=== PATIENT | female | born 1940 | race Caucasian/White ===

== ENCOUNTER 2020-12-03 18:17 | Inpatient (IN) | payer MEDICARE ==
[2020-12-03] MEDS ORDERED: HYDROcodone/Acetaminophen 7.5/325 mg Tablet PO PRN (19:28)
[2020-12-03] MEDS ORDERED: Ondansetron PF 4 MG/2 ML Vial IVP PRN (19:28)
[2020-12-03] MEDS ORDERED: Ondansetron ODT 4 MG TAB PO PRN (19:28)
[2020-12-03 20:54] LABS: Hemoglobin 10.8 g/dL (12.0-15.5); Mean Corpuscular HGB CONC 33.6 g/dL (32.0-36.0); Mean Corpuscular Hemoglobin 32.1 pg (27.0-33.0); Mean Corpuscular Volume 95.5 fl (81.6-98.3); Mean Platelet Volume 9.4 fl (7.4-10.4); Platelet Count 182 10x3/uL (150-450); RBC Distribution Width 15.7 % (11.5-14.5); Red Blood Cell (RBC) Count 3.36 10x6/uL (3.90-5.03); White Blood Cell (WBC) Count 16.3 10x3/uL (3.5-10.5)
[2020-12-03 21:02] LABS: Anion Gap 15 mmol/L (10-20); BUN (Urea Nitrogen) 31 mg/dL (9.8-20.1); Calc. Creatinine Clearance 32 mL/min (70-130); Calcium 7.5 mg/dL (7.8-10.44); Carbon Dioxide 19 mmol/L (23-31); Chloride 106 mmol/L (98-107); Glucose 70 mg/dL (83-110); Sodium 136 mmol/L (136-145)
[2020-12-03 21:17] LABS: MDiff Complete? YES
[2020-12-03 21:21] LABS: Band 37 % (5-11); Lymphocytes 4 % (21-51); Metamyelocyte 9 % (0-0); Neutrophil 50 % (42-75)
[2020-12-03 21:22] LABS: Dohle Bodies SLIGHT; Vacuoles SLIGHT
[2020-12-03 21:23] LABS: Platelet Morphology Comment Appears Adequate
[2020-12-03 21:24] LABS: RBC Morphology Normal
[2020-12-03 22:02] LABS: Vancomycin, Trough 22.3 ug/mL
[2020-12-03] MEDS: Cefepime 2 GM in Sodium Chloride 0.9% 100 ML IVPB SCH (22:10)
[2020-12-03] MEDS: Sodium Chloride 0.9% 1,000 ML IV SCH (22:10)
[2020-12-03] MEDS: Clindamycin/D5W 900 MG in Premix Bag 1 BAG IVPB SCH (22:11)
[2020-12-03] MEDS: Heparin 5,000 UNITS/ML VIAL SC SCH (22:11)
[2020-12-03] MEDS: Simvastatin 10 MG TAB PO SCH (22:12)
[2020-12-03 23:29] LABS: Lactic Acid 2.7 mmol/L (0.5-2.2)
[2020-12-04] MEDS: HYDROcodone/Acetaminophen 5/325 mg Tablet PO PRN (03:47)
[2020-12-04] MEDS: Sodium Chloride 0.9% 1,000 ML IV SCH ×3 (03:50→15:36)
[2020-12-04 05:17] LABS: Hemoglobin 10.7 g/dL (12.0-15.5); Mean Corpuscular HGB CONC 34.3 g/dL (32.0-36.0); Mean Corpuscular Hemoglobin 32.2 pg (27.0-33.0); Mean Platelet Volume 9.6 fl (7.4-10.4); Platelet Count 186 10x3/uL (150-450); RBC Distribution Width 15.8 % (11.5-14.5); Red Blood Cell (RBC) Count 3.32 10x6/uL (3.90-5.03); White Blood Cell (WBC) Count 16.1 10x3/uL (3.5-10.5)
[2020-12-04 05:24] LABS: Anion Gap 15 mmol/L (10-20); BUN (Urea Nitrogen) 32 mg/dL (9.8-20.1); Calc. Creatinine Clearance 31 mL/min (70-130); Calcium 6.9 mg/dL (7.8-10.44); Carbon Dioxide 16 mmol/L (23-31); Chloride 110 mmol/L (98-107); Glucose 67 mg/dL (83-110); Potassium 3.8 mmol/L (3.5-5.1); Sodium 137 mmol/L (136-145)
[2020-12-04] MEDS: Clindamycin/D5W 900 MG in Premix Bag 1 BAG IVPB SCH ×3 (05:47→21:45)
[2020-12-04 06:00] LABS: MDiff Complete? YES
[2020-12-04 06:07] LABS: Band 46 % (5-11); Lymphocytes 2 % (21-51); Metamyelocyte 5 % (0-0); Monocytes 3 % (0-10); Neutrophil 44 % (42-75)
[2020-12-04 06:10] LABS: Platelet Morphology Comment Appears Adequate
[2020-12-04 06:11] LABS: Dohle Bodies SLIGHT; RBC Morphology Normal
[2020-12-04] MEDS: Aspirin 81 mg Enteric Coated Tablet PO SCH (08:32)
[2020-12-04] MEDS: Heparin 5,000 UNITS/ML VIAL SC SCH ×3 (08:32→20:41)
[2020-12-04] MEDS: Cefepime 2 GM in Sodium Chloride 0.9% 100 ML IVPB SCH ×2 (08:32→20:40)
[2020-12-04] MEDS ORDERED: Vancomycin 1 GM in Premix Bag 1 BAG IVPB PRN (09:00)
[2020-12-04 13:37] LABS: Anion Gap 13 mmol/L (10-20); BUN (Urea Nitrogen) 33 mg/dL (9.8-20.1); Calc. Creatinine Clearance 33 mL/min (70-130); Calcium 6.8 mg/dL (7.8-10.44); Carbon Dioxide 17 mmol/L (23-31); Chloride 113 mmol/L (98-107); Glucose 95 mg/dL (83-110); Potassium 3.9 mmol/L (3.5-5.1); Sodium 139 mmol/L (136-145)
[2020-12-04] MEDS: Acetaminophen 500 MG TAB PO PRN ×2 (13:45→21:55)
[2020-12-04 16:00] LABS: Lactic Acid 1.2 mmol/L (0.5-2.2)
[2020-12-04] MEDS ORDERED: Sodium Bicarb 50 MEQ/50 ML VIAL IVP SCH (17:00)
[2020-12-04] MEDS: Simvastatin 10 MG TAB PO SCH (20:40)
[2020-12-04] MEDS ORDERED: Sodium Bicarb 50 MEQ/50 ML VIAL ONE (21:45)
[2020-12-04] MEDS ORDERED: Sodium Bicarb 50 MEQ/50 ML Abboject 8.4% SYRINGE IVP SCH (22:00)
[2020-12-05] MEDS: Sodium Chloride 0.9% 1,000 ML IV SCH ×2 (00:16→06:07)
[2020-12-05 03:55] LABS: Hemoglobin 9.5 g/dL (12.0-15.5); Mean Corpuscular HGB CONC 34.2 g/dL (32.0-36.0); Mean Corpuscular Hemoglobin 31.9 pg (27.0-33.0); Mean Corpuscular Volume 93.3 fl (81.6-98.3); Mean Platelet Volume 9.7 fl (7.4-10.4); Platelet Count 162 10x3/uL (150-450); RBC Distribution Width 16.4 % (11.5-14.5); Red Blood Cell (RBC) Count 2.98 10x6/uL (3.90-5.03); White Blood Cell (WBC) Count 17.4 10x3/uL (3.5-10.5)
[2020-12-05 04:15] LABS: Vancomycin, Random 10.3 ug/mL (See Comment)
[2020-12-05 04:20] LABS: MDiff Complete? YES
[2020-12-05 04:24] LABS: Band 29 % (5-11); Lymphocytes 1 % (21-51); Metamyelocyte 3 % (0-0); Monocytes 1 % (0-10); Neutrophil 66 % (42-75)
[2020-12-05 04:25] LABS: ALT (SGPT) 51 U/L (8-55); AST (SGOT) 59 U/L (5-34); Albumin 2.4 g/dL (3.4-4.8); Alkaline Phosphatase 85 U/L (40-110); Anion Gap 14 mmol/L (10-20); BUN (Urea Nitrogen) 31 mg/dL (9.8-20.1); Calc. Creatinine Clearance 40 mL/min (70-130); Calcium 6.6 mg/dL (7.8-10.44); Carbon Dioxide 19 mmol/L (23-31); Chloride 117 mmol/L (98-107); Globulin 1.6 g/dL (2.4-3.5); Glucose 86 mg/dL (83-110); Magnesium 1.5 mg/dL (1.6-2.6); Platelet Morphology Comment Appears Adequate; Potassium 3.6 mmol/L (3.5-5.1); Sodium 146 mmol/L (136-145); Toxic Granulation SLIGHT; Vacuoles SLIGHT
[2020-12-05 04:26] LABS: RBC Morphology Normal
[2020-12-05] MEDS: Vancomycin HCl 1 GM in Sodium Chloride 0.9% 250 ML 250 ML IVPB SCH (06:07)
[2020-12-05] MEDS: Clindamycin/D5W 900 MG in Premix Bag 1 BAG IVPB SCH ×3 (06:07→21:03)
[2020-12-05] MEDS: Cefepime 2 GM in Sodium Chloride 0.9% 100 ML IVPB SCH (08:25)
[2020-12-05] MEDS: Heparin 5,000 UNITS/ML VIAL SC SCH ×3 (08:26→21:03)
[2020-12-05] MEDS: Aspirin 81 mg Enteric Coated Tablet PO SCH (08:26)
[2020-12-05] MEDS: Acetaminophen 325 MG TAB PO PRN (08:36)
[2020-12-05] MEDS ORDERED: Magnesium Sulfate 3 GM in Sodium Chloride 0.9% 100 ML IVPB SCH (11:30)
[2020-12-05] MEDS ORDERED: Potassium Chloride 20 MEQ TAB PO SCH (11:30)
[2020-12-05] MEDS ORDERED: Magnesium 2 GM/50 ML 2 GM in Premix Bag 1 BAG IVPB SCH (12:00)
[2020-12-05] MEDS: Cyclobenzaprine 10 MG TAB PO PRN (12:09)
[2020-12-05] MEDS: Lactated Ringer's 1,000 ML IV SCH ×2 (13:05→19:50)
[2020-12-05] MEDS: Simvastatin 10 MG TAB PO SCH (21:03)
[2020-12-06 04:21] LABS: #Basophils 0.1 10x3/uL (0.0-0.2); #Monocytes 0.8 10x3/uL (0.0-1.1); #Neutrophils 12.6 10x3/uL (1.5-8.4); %Basophils 0.5 % (0.0-2.0); %Eosinophils 0.1 % (0.0-6.0); %Lymphocytes 3.8 % (18.0-47.0); %Monocytes 5.8 % (0.0-10.0); %Neutrophils 89.2 % (40.0-75.0); Hemoglobin 9.9 g/dL (12.0-15.5); Mean Corpuscular HGB CONC 33.9 g/dL (32.0-36.0); Mean Corpuscular Volume 94.5 fl (81.6-98.3); Mean Platelet Volume 10.2 fl (7.4-10.4); Platelet Count 178 10x3/uL (150-450); RBC Distribution Width 16.7 % (11.5-14.5); Red Blood Cell (RBC) Count 3.09 10x6/uL (3.90-5.03); White Blood Cell (WBC) Count 14.1 10x3/uL (3.5-10.5)
[2020-12-06 04:30] LABS: ALT (SGPT) 44 U/L (8-55); AST (SGOT) 38 U/L (5-34); Albumin 2.4 g/dL (3.4-4.8); Alkaline Phosphatase 113 U/L (40-110); Anion Gap 13 mmol/L (10-20); BUN (Urea Nitrogen) 18 mg/dL (9.8-20.1); Bilirubin, Total 1.8 mg/dL (0.2-1.2); Calc. Creatinine Clearance 63 mL/min (70-130); Carbon Dioxide 19 mmol/L (23-31); Chloride 117 mmol/L (98-107); Glucose 85 mg/dL (83-110); Magnesium 2.3 mg/dL (1.6-2.6); Potassium 3.8 mmol/L (3.5-5.1); Protein, Total 4.4 g/dL (5.8-8.1); Sodium 145 mmol/L (136-145)
[2020-12-06] MEDS: Vancomycin HCl 1 GM in Sodium Chloride 0.9% 250 ML 250 ML IVPB SCH (05:27)
[2020-12-06] MEDS: Clindamycin/D5W 900 MG in Premix Bag 1 BAG IVPB SCH ×3 (05:27→22:30)
[2020-12-06] MEDS: Cyclobenzaprine 10 MG TAB PO PRN (08:02)
[2020-12-06] MEDS: Aspirin 81 mg Enteric Coated Tablet PO SCH (08:21)
[2020-12-06] MEDS: Cefepime 1 GM in Sodium Chloride 0.9% 100 ML IVPB SCH (08:23)
[2020-12-06] MEDS: Heparin 5,000 UNITS/ML VIAL SC SCH ×3 (08:24→20:52)
[2020-12-06] MEDS: HYDROcodone/Acetaminophen 7.5/325 mg Tablet PO PRN ×4 (09:40→22:33)
[2020-12-06] MEDS: Lactated Ringer's 1,000 ML IV SCH ×2 (09:49→12:20)
[2020-12-06] MEDS: Simvastatin 10 MG TAB PO SCH (20:52)
[2020-12-07] MEDS: Lactated Ringer's 1,000 ML IV SCH (00:12)
[2020-12-07] MEDS: HYDROcodone/Acetaminophen 7.5/325 mg Tablet PO PRN ×3 (05:15→20:29)
[2020-12-07 05:45] LABS: #Basophils 0.1 10x3/uL (0.0-0.2); #Eosinphils 0.2 10x3/uL (0.0-0.5); #Monocytes 1.3 10x3/uL (0.0-1.1); #Neutrophils 7.8 10x3/uL (1.5-8.4); %Basophils 0.5 % (0.0-2.0); %Eosinophils 1.5 % (0.0-6.0); %Lymphocytes 8.8 % (18.0-47.0); %Monocytes 12.3 % (0.0-10.0); %Neutrophils 74.7 % (40.0-75.0); Hemoglobin 10.9 g/dL (12.0-15.5); Mean Corpuscular HGB CONC 33.9 g/dL (32.0-36.0); Mean Corpuscular Hemoglobin 32.2 pg (27.0-33.0); Mean Corpuscular Volume 95.3 fl (81.6-98.3); Mean Platelet Volume 10.4 fl (7.4-10.4); Platelet Count 188 10x3/uL (150-450); RBC Distribution Width 17.3 % (11.5-14.5); Red Blood Cell (RBC) Count 3.38 10x6/uL (3.90-5.03); White Blood Cell (WBC) Count 10.4 10x3/uL (3.5-10.5)
[2020-12-07 06:02] LABS: Vancomycin, Trough 10.8 ug/mL
[2020-12-07] MEDS: Clindamycin/D5W 900 MG in Premix Bag 1 BAG IVPB SCH ×3 (06:05→21:51)
[2020-12-07] MEDS: Vancomycin HCl 1 GM in Sodium Chloride 0.9% 250 ML 250 ML IVPB SCH (06:05)
[2020-12-07 06:14] LABS: Anion Gap 13 mmol/L (10-20); BUN (Urea Nitrogen) 15 mg/dL (9.8-20.1); Calc. Creatinine Clearance 37 mL/min (70-130); Calcium 8.2 mg/dL (7.8-10.44); Carbon Dioxide 20 mmol/L (23-31); Chloride 110 mmol/L (98-107); Glucose 78 mg/dL (83-110); Potassium 4.1 mmol/L (3.5-5.1); Sodium 139 mmol/L (136-145)
[2020-12-07] MEDS ORDERED: VANCOMYCIN 1.25 GM/250 ML BAG 1.25 GM in Premix Bag 1 BAG IVPB SCH (06:30)
[2020-12-07] MEDS: Aspirin 81 mg Enteric Coated Tablet PO SCH (09:44)
[2020-12-07] MEDS: Heparin 5,000 UNITS/ML VIAL SC SCH ×3 (09:44→20:28)
[2020-12-07] MEDS: Cefepime 1 GM in Sodium Chloride 0.9% 100 ML IVPB SCH (09:45)
[2020-12-07] MEDS: Amlodipine 5 MG TAB PO SCH (20:27)
[2020-12-07] MEDS: Simvastatin 10 MG TAB PO SCH (20:29)
[2020-12-08] MEDS: HYDROcodone/Acetaminophen 7.5/325 mg Tablet PO PRN ×3 (01:12→22:41)
[2020-12-08 03:57] LABS: Hemoglobin 9.3 g/dL (12.0-15.5); Mean Corpuscular HGB CONC 34.3 g/dL (32.0-36.0); Mean Corpuscular Hemoglobin 32.2 pg (27.0-33.0); Mean Corpuscular Volume 93.8 fl (81.6-98.3); Mean Platelet Volume 10.4 fl (7.4-10.4); Platelet Count 208 10x3/uL (150-450); RBC Distribution Width 17.2 % (11.5-14.5); Red Blood Cell (RBC) Count 2.89 10x6/uL (3.90-5.03); White Blood Cell (WBC) Count 10.9 10x3/uL (3.5-10.5)
[2020-12-08 04:25] LABS: Band 7 % (5-11); Lymphocytes 8 % (21-51); Monocytes 8 % (0-10); Reactive Lymphocytes 1 % (0-10)
[2020-12-08 04:26] LABS: Neutrophil 76 % (42-75)
[2020-12-08 04:27] LABS: Platelet Morphology Comment Appears Adequate; Toxic Granulation SLIGHT
[2020-12-08 04:28] LABS: Anion Gap 13 mmol/L (10-20); BUN (Urea Nitrogen) 13 mg/dL (9.8-20.1); Calc. Creatinine Clearance 68 mL/min (70-130); Calcium 7.4 mg/dL (7.8-10.44); Carbon Dioxide 21 mmol/L (23-31); Chloride 108 mmol/L (98-107); Glucose 92 mg/dL (83-110); MDiff Complete? YES; Potassium 3.8 mmol/L (3.5-5.1); RBC Morphology Normal; Sodium 138 mmol/L (136-145)
[2020-12-08] MEDS: Clindamycin/D5W 900 MG in Premix Bag 1 BAG IVPB SCH ×3 (06:10→22:10)
[2020-12-08] MEDS: VANCOMYCIN 1.25 GM/250 ML BAG 1.25 GM in Premix Bag 1 BAG IVPB SCH (06:50)
[2020-12-08] MEDS: Heparin 5,000 UNITS/ML VIAL SC SCH ×4 (09:44→22:00)
[2020-12-08] MEDS: Amlodipine 5 MG TAB PO SCH ×2 (09:45→22:09)
[2020-12-08] MEDS: Aspirin 81 mg Enteric Coated Tablet PO SCH (09:46)
[2020-12-08] MEDS: Cefepime 1 GM in Sodium Chloride 0.9% 100 ML IVPB SCH (09:46)
[2020-12-08] MEDS: Acetaminophen 325 MG TAB PO PRN (17:59)
[2020-12-08] MEDS: Simvastatin 10 MG TAB PO SCH (22:08)
[2020-12-09] MEDS: Clindamycin/D5W 900 MG in Premix Bag 1 BAG IVPB SCH ×3 (05:16→23:16)
[2020-12-09] MEDS: VANCOMYCIN 1.25 GM/250 ML BAG 1.25 GM in Premix Bag 1 BAG IVPB SCH (06:33)
[2020-12-09 07:21] LABS: Hemoglobin 9.4 g/dL (12.0-15.5); Mean Corpuscular HGB CONC 32.5 g/dL (32.0-36.0); Mean Corpuscular Volume 98.3 fl (81.6-98.3); Platelet Count 306 10x3/uL (150-450); RBC Distribution Width 17.8 % (11.5-14.5); Red Blood Cell (RBC) Count 2.94 10x6/uL (3.90-5.03); White Blood Cell (WBC) Count 13.5 10x3/uL (3.5-10.5)
[2020-12-09 07:29] LABS: Vancomycin, Trough 17.9 ug/mL
[2020-12-09 07:29] LABS: ALT (SGPT) 29 U/L (8-55); AST (SGOT) 24 U/L (5-34); Albumin 2.2 g/dL (3.4-4.8); Alkaline Phosphatase 235 U/L (40-110); Anion Gap 16 mmol/L (10-20); BUN (Urea Nitrogen) 12 mg/dL (9.8-20.1); Bilirubin, Total 1.2 mg/dL (0.2-1.2); Calc. Creatinine Clearance 82 mL/min (70-130); Calcium 7.6 mg/dL (7.8-10.44); Carbon Dioxide 20 mmol/L (23-31); Chloride 108 mmol/L (98-107); Globulin 2.3 g/dL (2.4-3.5); Glucose 84 mg/dL (83-110); Magnesium 1.6 mg/dL (1.6-2.6); Potassium 3.8 mmol/L (3.5-5.1); Protein, Total 4.5 g/dL (5.8-8.1); Sodium 140 mmol/L (136-145)
[2020-12-09] MEDS ORDERED: Furosemide 20 MG TAB PO SCH (09:00)
[2020-12-09 09:35] LABS: Lymphocytes 7 % (21-51); Metamyelocyte 2 % (0-0); Monocytes 5 % (0-10); Myelocyte 1 % (0-0); Neutrophil 85 % (42-75)
[2020-12-09 09:37] LABS: Anisocytosis SLIGHT = 6-15 cells (100X) (0-5/hpf); MDiff Complete? YES
[2020-12-09 09:38] LABS: Dohle Bodies SLIGHT; Giant Platelets SLIGHT; Hypochromia SLIGHT = 6-15 cells (100X) (0-5/hpf); Platelet Morphology Comment Appears Adequate; Polychromasia SLIGHT = 2-3 cells (100X) (0-2/hpf); Toxic Granulation SLIGHT; Vacuoles SLIGHT
[2020-12-09 09:39] LABS: Large Platelets SLIGHT
[2020-12-09] MEDS: Amlodipine 5 MG TAB PO SCH ×2 (09:43→22:00)
[2020-12-09] MEDS: Cefepime 1 GM in Sodium Chloride 0.9% 100 ML IVPB SCH ×2 (09:43→22:00)
[2020-12-09] MEDS: Aspirin 81 mg Enteric Coated Tablet PO SCH (09:43)
[2020-12-09] MEDS: Heparin 5,000 UNITS/ML VIAL SC SCH ×3 (12:11→22:25)
[2020-12-09] MEDS: Acetaminophen 325 MG TAB PO PRN ×2 (12:41→22:24)
[2020-12-09] MEDS ORDERED: Furosemide 40 MG/4 ML VIAL SLOW IVP SCH (13:30)
[2020-12-09] MEDS ORDERED: Lorazepam 2 MG/ML VIAL SLOW IVP SCH (14:00)
[2020-12-09] MEDS: Simvastatin 10 MG TAB PO SCH (22:00)
[2020-12-10 05:22] LABS: #Basophils 0.1 10x3/uL (0.0-0.2); #Eosinphils 0.1 10x3/uL (0.0-0.5); #Monocytes 0.8 10x3/uL (0.0-1.1); #Neutrophils 10.7 10x3/uL (1.5-8.4); %Basophils 0.5 % (0.0-2.0); %Lymphocytes 7.2 % (18.0-47.0); %Monocytes 5.9 % (0.0-10.0); %Neutrophils 81.2 % (40.0-75.0); Hemoglobin 9.5 g/dL (12.0-15.5); Mean Corpuscular HGB CONC 33.9 g/dL (32.0-36.0); Mean Corpuscular Hemoglobin 32.4 pg (27.0-33.0); Mean Corpuscular Volume 95.6 fl (81.6-98.3); Mean Platelet Volume 10.9 fl (7.4-10.4); Platelet Count 356 10x3/uL (150-450); RBC Distribution Width 17.6 % (11.5-14.5); Red Blood Cell (RBC) Count 2.93 10x6/uL (3.90-5.03); White Blood Cell (WBC) Count 13.1 10x3/uL (3.5-10.5)
[2020-12-10 05:40] LABS: Vancomycin, Trough 12.9 ug/mL
[2020-12-10] MEDS: Clindamycin/D5W 900 MG in Premix Bag 1 BAG IVPB SCH ×2 (05:42→15:32)
[2020-12-10 05:44] LABS: ALT (SGPT) 45 U/L (8-55); AST (SGOT) 53 U/L (5-34); Albumin 2.3 g/dL (3.4-4.8); Alkaline Phosphatase 397 U/L (40-110); Anion Gap 15 mmol/L (10-20); BUN (Urea Nitrogen) 11 mg/dL (9.8-20.1); Bilirubin, Total 1.3 mg/dL (0.2-1.2); Calc. Creatinine Clearance 88 mL/min (70-130); Calcium 7.6 mg/dL (7.8-10.44); Carbon Dioxide 24 mmol/L (23-31); Chloride 105 mmol/L (98-107); Globulin 2.6 g/dL (2.4-3.5); Glucose 91 mg/dL (83-110); Magnesium 1.4 mg/dL (1.6-2.6); Potassium 3.7 mmol/L (3.5-5.1); Protein, Total 4.9 g/dL (5.8-8.1); Sodium 140 mmol/L (136-145)
[2020-12-10] MEDS ORDERED: Furosemide 20 MG/2 ML VIAL SLOW IVP SCH (06:00)
[2020-12-10] MEDS ORDERED: Vancomycin 1.5 GRAM/300 ML BAG 1.5 GM in Premix Bag 1 BAG IVPB SCH (06:00)
[2020-12-10] MEDS: Amlodipine 5 MG TAB PO SCH ×3 (08:23→21:05)
[2020-12-10] MEDS: Heparin 5,000 UNITS/ML VIAL SC SCH ×3 (08:24→21:07)
[2020-12-10] MEDS: Aspirin 81 mg Enteric Coated Tablet PO SCH ×2 (08:24→08:52)
[2020-12-10] MEDS: Cefepime 1 GM in Sodium Chloride 0.9% 100 ML IVPB SCH (09:28)
[2020-12-10] MEDS: HYDROcodone/Acetaminophen 7.5/325 mg Tablet PO PRN (11:35)
[2020-12-10] MEDS ORDERED: Alendronate Sodium 70 mg Tablet PO SCH (12:00)
[2020-12-10] MEDS ORDERED: Furosemide 100 MG/10 ML VIAL SLOW IVP SCH (15:45)
[2020-12-10] MEDS ORDERED: Magnesium 2 GM/50 ML 2 GM in Premix Bag 1 BAG IVPB SCH (16:15)
[2020-12-10] MEDS: Acetaminophen 325 MG TAB PO PRN (16:57)
[2020-12-10 17:37] LABS: Bilirubin Neg (Negative); Blood, Urine Negative (Negative); Clarity Clear (Clear); Glucose, Urine (Dipstick) Normal (Negative); Ketone, Urine Negative (Negative); Leukocyte Negative (Negative); Nitrite Negative (Negative); Protein, Urine (Dipstick) Negative (Neg-Trace); Specific Gravity, Urine 1.005 (1.002-1.036); Urobilinogen Normal mg/dL (Less than 2)
[2020-12-10 17:42] LABS: Urine Culture Reflex No No
[2020-12-10 17:43] LABS: Bacteria/HPF Rare-Few HPF (None Seen); RBC/HPF 0-3 HPF (0-3); Squamous Epithelial 0-3 HPF (0-3); WBC/HPF 0-3 HPF (0-3)
[2020-12-10] MEDS: HYDROcodone/Acetaminophen 5/325 mg Tablet PO PRN (18:32)
[2020-12-10] MEDS: Simvastatin 10 MG TAB PO SCH (21:06)
[2020-12-10] MEDS: ceFAZolin Sodium/D5W 2 GM in Premix Bag 1 BAG IVPB SCH (21:23)
[2020-12-11] MEDS: HYDROcodone/Acetaminophen 5/325 mg Tablet PO PRN ×2 (03:12→14:54)
[2020-12-11 04:37] LABS: #Basophils 0.1 10x3/uL (0.0-0.2); #Eosinphils 0.1 10x3/uL (0.0-0.5); #Monocytes 0.7 10x3/uL (0.0-1.1); #Neutrophils 9.9 10x3/uL (1.5-8.4); %Basophils 0.5 % (0.0-2.0); %Eosinophils 1.1 % (0.0-6.0); %Lymphocytes 8.6 % (18.0-47.0); %Monocytes 5.7 % (0.0-10.0); %Neutrophils 80.7 % (40.0-75.0); Hemoglobin 9.3 g/dL (12.0-15.5); Mean Corpuscular HGB CONC 33.6 g/dL (32.0-36.0); Mean Corpuscular Hemoglobin 32.2 pg (27.0-33.0); Mean Corpuscular Volume 95.8 fl (81.6-98.3); Mean Platelet Volume 10.7 fl (7.4-10.4); Platelet Count 444 10x3/uL (150-450); RBC Distribution Width 17.3 % (11.5-14.5); Red Blood Cell (RBC) Count 2.89 10x6/uL (3.90-5.03); White Blood Cell (WBC) Count 12.2 10x3/uL (3.5-10.5)
[2020-12-11 04:55] LABS: ALT (SGPT) 40 U/L (8-55); AST (SGOT) 43 U/L (5-34); Albumin 2.4 g/dL (3.4-4.8); Alkaline Phosphatase 420 U/L (40-110); Anion Gap 16 mmol/L (10-20); BUN (Urea Nitrogen) 11 mg/dL (9.8-20.1); CRP (Inflammatory) 21.12 mg/dL (= or < 0.5); Calc. Creatinine Clearance 79 mL/min (70-130); Calcium 7.5 mg/dL (7.8-10.44); Carbon Dioxide 27 mmol/L (23-31); Chloride 101 mmol/L (98-107); Globulin 2.9 g/dL (2.4-3.5); Glucose 84 mg/dL (83-110); Potassium 3.6 mmol/L (3.5-5.1); Protein, Total 5.3 g/dL (5.8-8.1); Sodium 140 mmol/L (136-145)
[2020-12-11] MEDS: ceFAZolin Sodium/D5W 2 GM in Premix Bag 1 BAG IVPB SCH ×3 (05:14→22:43)
[2020-12-11] MEDS: Aspirin 81 mg Enteric Coated Tablet PO SCH (08:16)
[2020-12-11] MEDS: HYDROcodone/Acetaminophen 7.5/325 mg Tablet PO PRN ×3 (08:16→22:44)
[2020-12-11] MEDS: Amlodipine 5 MG TAB PO SCH ×2 (08:17→20:47)
[2020-12-11] MEDS: Heparin 5,000 UNITS/ML VIAL SC SCH ×3 (08:18→20:48)
[2020-12-11] MEDS: Simvastatin 10 MG TAB PO SCH (20:47)
[2020-12-12 05:55] LABS: Anion Gap 16 mmol/L (10-20); BUN (Urea Nitrogen) 11 mg/dL (9.8-20.1); Calc. Creatinine Clearance 83 mL/min (70-130); Calcium 7.8 mg/dL (7.8-10.44); Carbon Dioxide 27 mmol/L (23-31); Chloride 101 mmol/L (98-107); Glucose 83 mg/dL (83-110); Potassium 4.1 mmol/L (3.5-5.1); Sodium 140 mmol/L (136-145)
[2020-12-12 05:56] LABS: #Basophils 0.1 10x3/uL (0.0-0.2); #Eosinphils 0.1 10x3/uL (0.0-0.5); #Monocytes 0.7 10x3/uL (0.0-1.1); #Neutrophils 7.2 10x3/uL (1.5-8.4); %Basophils 0.9 % (0.0-2.0); %Eosinophils 1.1 % (0.0-6.0); %Lymphocytes 12.6 % (18.0-47.0); %Monocytes 7.1 % (0.0-10.0); %Neutrophils 73.8 % (40.0-75.0); Hemoglobin 9.5 g/dL (12.0-15.5); Mean Corpuscular HGB CONC 33.2 g/dL (32.0-36.0); Mean Corpuscular Hemoglobin 32.2 pg (27.0-33.0); Mean Corpuscular Volume 96.9 fl (81.6-98.3); Mean Platelet Volume 10.6 fl (7.4-10.4); Platelet Count 497 10x3/uL (150-450); RBC Distribution Width 17.4 % (11.5-14.5); Red Blood Cell (RBC) Count 2.95 10x6/uL (3.90-5.03); White Blood Cell (WBC) Count 9.8 10x3/uL (3.5-10.5)
[2020-12-12] MEDS: ceFAZolin Sodium/D5W 2 GM in Premix Bag 1 BAG IVPB SCH ×3 (06:00→22:28)
[2020-12-12] MEDS: Aspirin 81 mg Enteric Coated Tablet PO SCH (08:08)
[2020-12-12] MEDS: Amlodipine 5 MG TAB PO SCH ×2 (08:08→20:44)
[2020-12-12] MEDS: Heparin 5,000 UNITS/ML VIAL SC SCH ×3 (08:09→20:45)
[2020-12-12] MEDS: HYDROcodone/Acetaminophen 7.5/325 mg Tablet PO PRN ×3 (09:06→22:29)
[2020-12-12] MEDS ORDERED: Furosemide 40 MG/4 ML VIAL SLOW IVP SCH (14:00)
[2020-12-12] MEDS: Simvastatin 10 MG TAB PO SCH (20:45)
[2020-12-13] MEDS: HYDROcodone/Acetaminophen 5/325 mg Tablet PO PRN (03:51)
[2020-12-13] MEDS: ceFAZolin Sodium/D5W 2 GM in Premix Bag 1 BAG IVPB SCH (06:09)
[2020-12-13] MEDS: Heparin 5,000 UNITS/ML VIAL SC SCH ×3 (09:00→20:18)
[2020-12-13] MEDS: Aspirin 81 mg Enteric Coated Tablet PO SCH (09:01)
[2020-12-13] MEDS: Amlodipine 5 MG TAB PO SCH ×2 (09:02→20:16)
[2020-12-13] MEDS: HYDROcodone/Acetaminophen 7.5/325 mg Tablet PO PRN ×3 (10:29→20:17)
[2020-12-13] MEDS: CEFAZOLIN 2 GM in Premix Bag 1 BAG IVPB SCH ×2 (14:24→22:03)
[2020-12-13] MEDS: Simvastatin 10 MG TAB PO SCH (20:17)
[2020-12-14 04:55] VITALS: BMI 31.5
[2020-12-14] MEDS: CEFAZOLIN 2 GM in Premix Bag 1 BAG IVPB SCH ×3 (05:33→22:47)
[2020-12-14] MEDS: Amlodipine 5 MG TAB PO SCH ×2 (09:20→22:34)
[2020-12-14] MEDS: Aspirin 81 mg Enteric Coated Tablet PO SCH (09:20)
[2020-12-14] MEDS: Heparin 5,000 UNITS/ML VIAL SC SCH ×3 (09:21→22:35)
[2020-12-14] MEDS: ceFAZolin Sodium/D5W 2 GM in Premix Bag 1 BAG IVPB SCH ×2 (15:30→22:48)
[2020-12-14] MEDS: HYDROcodone/Acetaminophen 7.5/325 mg Tablet PO PRN (15:50)
[2020-12-14] MEDS: Simvastatin 10 MG TAB PO SCH (22:35)
[2020-12-15] MEDS: HYDROcodone/Acetaminophen 7.5/325 mg Tablet PO PRN ×2 (00:15→09:45)
[2020-12-15] MEDS ORDERED: Melatonin 3 MG TAB PO PRN (01:56)
[2020-12-15] MEDS: Melatonin 3 MG TAB PO SCH ×2 (02:00→03:01)
[2020-12-15 05:40] LABS: #Basophils 0.1 10x3/uL (0.0-0.2); #Eosinphils 0.1 10x3/uL (0.0-0.5); #Monocytes 0.8 10x3/uL (0.0-1.1); #Neutrophils 5.3 10x3/uL (1.5-8.4); %Basophils 1.3 % (0.0-2.0); %Eosinophils 1.4 % (0.0-6.0); %Lymphocytes 15.7 % (18.0-47.0); %Monocytes 10.4 % (0.0-10.0); %Neutrophils 66.4 % (40.0-75.0); Hemoglobin 8.8 g/dL (12.0-15.5); Mean Corpuscular HGB CONC 31.7 g/dL (32.0-36.0); Mean Corpuscular Hemoglobin 32.5 pg (27.0-33.0); Mean Corpuscular Volume 102.6 fl (81.6-98.3); Mean Platelet Volume 10.4 fl (7.4-10.4); Platelet Count 685 10x3/uL (150-450); RBC Distribution Width 17.1 % (11.5-14.5); Red Blood Cell (RBC) Count 2.71 10x6/uL (3.90-5.03)
[2020-12-15 05:47] LABS: Anion Gap 14 mmol/L (10-20); BUN (Urea Nitrogen) 12 mg/dL (9.8-20.1); Calc. Creatinine Clearance 79 mL/min (70-130); Carbon Dioxide 27 mmol/L (23-31); Chloride 106 mmol/L (98-107); Sodium 142 mmol/L (136-145)
[2020-12-15 05:48] LABS: Glucose 93 mg/dL (83-110)
[2020-12-15] MEDS: CEFAZOLIN 2 GM in Premix Bag 1 BAG IVPB SCH ×3 (05:51→22:47)
[2020-12-15] MEDS ORDERED: CEFAZOLIN 2 GM in Premix Bag 1 BAG IVPB SCH (06:00)
[2020-12-15] MEDS: Aspirin 81 mg Enteric Coated Tablet PO SCH (08:36)
[2020-12-15] MEDS: Amlodipine 5 MG TAB PO SCH ×2 (08:36→22:47)
[2020-12-15] MEDS: Heparin 5,000 UNITS/ML VIAL SC SCH ×3 (08:36→22:47)
[2020-12-15] MEDS: Melatonin 3 MG TAB PO PRN (22:47)
[2020-12-15] MEDS: Simvastatin 10 MG TAB PO SCH (22:47)
[2020-12-16] MEDS: CEFAZOLIN 2 GM in Premix Bag 1 BAG IVPB SCH ×3 (06:09→21:26)
[2020-12-16] MEDS: Heparin 5,000 UNITS/ML VIAL SC SCH ×3 (08:23→21:26)
[2020-12-16] MEDS: Aspirin 81 mg Enteric Coated Tablet PO SCH (08:23)
[2020-12-16] MEDS: Amlodipine 5 MG TAB PO SCH ×2 (08:23→21:26)
[2020-12-16 09:05] LABS: #Basophils 0.1 10x3/uL (0.0-0.2); #Eosinphils 0.1 10x3/uL (0.0-0.5); #Monocytes 0.7 10x3/uL (0.0-1.1); #Neutrophils 4.9 10x3/uL (1.5-8.4); %Basophils 1.6 % (0.0-2.0); %Eosinophils 1.3 % (0.0-6.0); %Lymphocytes 18.1 % (18.0-47.0); %Monocytes 8.9 % (0.0-10.0); %Neutrophils 64.7 % (40.0-75.0); Hemoglobin 9.2 g/dL (12.0-15.5); Mean Corpuscular HGB CONC 30.7 g/dL (32.0-36.0); Mean Corpuscular Hemoglobin 31.8 pg (27.0-33.0); Mean Corpuscular Volume 103.8 fl (81.6-98.3); Mean Platelet Volume 9.8 fl (7.4-10.4); Platelet Count 874 10x3/uL (150-450); RBC Distribution Width 17.2 % (11.5-14.5); Red Blood Cell (RBC) Count 2.89 10x6/uL (3.90-5.03); White Blood Cell (WBC) Count 7.6 10x3/uL (3.5-10.5)
[2020-12-16] MEDS: HYDROcodone/Acetaminophen 7.5/325 mg Tablet PO PRN (14:27)
[2020-12-16] MEDS: Simvastatin 10 MG TAB PO SCH (21:26)
[2020-12-16] MEDS: Melatonin 3 MG TAB PO PRN (22:33)
[2020-12-17] MEDS: CEFAZOLIN 2 GM in Premix Bag 1 BAG IVPB SCH (06:06)
[2020-12-17] MEDS: HYDROcodone/Acetaminophen 7.5/325 mg Tablet PO PRN (06:09)
[2020-12-17] MEDS: Amlodipine 5 MG TAB PO SCH (09:53)
[2020-12-17] MEDS: Aspirin 81 mg Enteric Coated Tablet PO SCH (09:54)
[2020-12-17] MEDS: Heparin 5,000 UNITS/ML VIAL SC SCH (09:54)
[2020-12-17 12:39] VITALS: BP 115/77; TEMP 98.7
== END 2020-12-17 14:59 | DRG 871 ==
LOC: CSHIMCU 18:17 → CSHTELE 12-08 05:59
PROVIDERS: ADMIT Family Medicine; ATTEND Internal Medicine
DX: A41.9 Sepsis, unspecified organism (principal); R65.21 Severe sepsis with septic shock; L03.116 Cellulitis of left lower limb; N17.9 Acute kidney failure, unspecified; I24.8 Other forms of acute ischemic heart disease; E87.0 Hyperosmolality and hypernatremia; E87.2 Acidosis; F32.A Depression, unspecified; E78.5 Hyperlipidemia, unspecified; I10 Essential (primary) hypertension; M19.90 Unspecified osteoarthritis, unspecified site; I87.2 Venous insufficiency (chronic) (peripheral); K21.9 Gastro-esophageal reflux disease without esophagitis; F41.9 Anxiety disorder, unspecified; R33.9 Retention of urine, unspecified; Z88.2 Allergy status to sulfonamides; Z79.899 Other long term (current) drug therapy; Z79.82 Long term (current) use of aspirin
CPT/HCPCS: 36415; 36416; 74176; 80048; 80053; 80202; 81001; 82550; 83605; 83735; 85025; 85652; 86140; 87040; 87070; 87205; 93005; 93010; 93306; 93923; J0690; J0692; J1644; J1940; J2060; J2405; J3370; J3475; J3490; J7050; J7120; Q0162

== ENCOUNTER 2021-01-07 09:10 | Outpatient (CLI) | payer MEDICARE, OTHER | END 2021-01-07 09:11 | disposition home or self-care (01) | LOC: CSHWCC 09:10 | PROVIDERS: ATTEND Nurse Practitioner Family | DX: I87.312 Chronic venous hypertension (idiopathic) with ulcer of left lower extremity (principal); I87.2 Venous insufficiency (chronic) (peripheral); L97.322 Non-pressure chronic ulcer of left ankle with fat layer exposed; L97.822 Non-pressure chronic ulcer of other part of left lower leg with fat layer exposed; L03.119 Cellulitis of unspecified part of limb; A41.9 Sepsis, unspecified organism; E78.2 Mixed hyperlipidemia; R60.0 Localized edema | CPT/HCPCS: 11042; 97139; G0463; 99203 ==

== ENCOUNTER 2021-01-14 10:05 | Outpatient (CLI) | payer MEDICARE | END 2021-01-14 10:06 | disposition home or self-care (01) | LOC: CSHWCC 10:05 | PROVIDERS: ATTEND Nurse Practitioner Family | DX: I87.312 Chronic venous hypertension (idiopathic) with ulcer of left lower extremity (principal); L97.822 Non-pressure chronic ulcer of other part of left lower leg with fat layer exposed; I87.311 Chronic venous hypertension (idiopathic) with ulcer of right lower extremity; L97.212 Non-pressure chronic ulcer of right calf with fat layer exposed; L97.322 Non-pressure chronic ulcer of left ankle with fat layer exposed; R60.0 Localized edema; A41.9 Sepsis, unspecified organism; E78.2 Mixed hyperlipidemia; I87.2 Venous insufficiency (chronic) (peripheral); L03.119 Cellulitis of unspecified part of limb | CPT/HCPCS: 99213; G0463 ==

== ENCOUNTER 2021-01-28 12:53 | Outpatient (CLI) | payer MEDICARE | END 2021-01-28 12:54 | disposition home or self-care (01) | LOC: CSHWCC 12:53 | PROVIDERS: ATTEND Nurse Practitioner Family | DX: I87.311 Chronic venous hypertension (idiopathic) with ulcer of right lower extremity (principal); A41.9 Sepsis, unspecified organism; E78.2 Mixed hyperlipidemia; I10 Essential (primary) hypertension; L97.212 Non-pressure chronic ulcer of right calf with fat layer exposed; I87.312 Chronic venous hypertension (idiopathic) with ulcer of left lower extremity; L97.322 Non-pressure chronic ulcer of left ankle with fat layer exposed; L97.822 Non-pressure chronic ulcer of other part of left lower leg with fat layer exposed; L03.119 Cellulitis of unspecified part of limb; R60.0 Localized edema | CPT/HCPCS: 11042; 99213; G0463 ==

== ENCOUNTER 2021-02-11 12:58 | Outpatient (CLI) | payer MEDICARE | END 2021-02-11 12:59 | disposition home or self-care (01) | LOC: CSHWCC 12:58 | PROVIDERS: ATTEND Nurse Practitioner Family | DX: I87.311 Chronic venous hypertension (idiopathic) with ulcer of right lower extremity (principal); A41.9 Sepsis, unspecified organism; E78.2 Mixed hyperlipidemia; I10 Essential (primary) hypertension; I87.2 Venous insufficiency (chronic) (peripheral); I87.312 Chronic venous hypertension (idiopathic) with ulcer of left lower extremity; L97.212 Non-pressure chronic ulcer of right calf with fat layer exposed; L97.322 Non-pressure chronic ulcer of left ankle with fat layer exposed; L97.822 Non-pressure chronic ulcer of other part of left lower leg with fat layer exposed; L03.119 Cellulitis of unspecified part of limb; R60.0 Localized edema | CPT/HCPCS: 97139; G0463; 99213 ==

== ENCOUNTER 2021-02-26 10:18 | Outpatient (CLI) | payer MEDICARE | END 2021-02-26 10:19 | disposition home or self-care (01) | LOC: CSHWCC 10:18 | PROVIDERS: ATTEND Nurse Practitioner Family | DX: I87.311 Chronic venous hypertension (idiopathic) with ulcer of right lower extremity (principal); I87.2 Venous insufficiency (chronic) (peripheral); L97.212 Non-pressure chronic ulcer of right calf with fat layer exposed; L03.119 Cellulitis of unspecified part of limb; R60.0 Localized edema; A41.9 Sepsis, unspecified organism; E78.2 Mixed hyperlipidemia ==

== ENCOUNTER 2021-11-25 08:53 | Outpatient (CLI) | payer MEDICARE | END 2021-11-25 08:54 | disposition home or self-care (01) | LOC: CSHWCC 08:53 | PROVIDERS: ATTEND Preventive Medicine Undersea and Hyperbaric Medicine | DX: S81.801D Unspecified open wound, right lower leg, subsequent encounter (principal); R60.0 Localized edema | CPT/HCPCS: 97607 ==

== ENCOUNTER 2021-12-02 15:13 | Outpatient (CLI) | payer MEDICARE | END 2021-12-02 15:14 | disposition home or self-care (01) | LOC: CSHWCC 15:13 | PROVIDERS: ATTEND Preventive Medicine Undersea and Hyperbaric Medicine | DX: S81.801D Unspecified open wound, right lower leg, subsequent encounter (principal); R60.0 Localized edema | CPT/HCPCS: 11042; 97607 ==

== ENCOUNTER 2021-12-09 08:53 | Outpatient (CLI) | payer MEDICARE | END 2021-12-09 08:54 | disposition home or self-care (01) | LOC: CSHWCC 08:53 | PROVIDERS: ATTEND Preventive Medicine Undersea and Hyperbaric Medicine | DX: S81.801D Unspecified open wound, right lower leg, subsequent encounter (principal); R60.0 Localized edema | CPT/HCPCS: 11042; 97139; 97607; G0463; 99212 ==

== ENCOUNTER 2021-12-16 10:32 | Outpatient (CLI) | payer MEDICARE | END 2021-12-16 10:33 | disposition home or self-care (01) | LOC: CSHWCC 10:32 | PROVIDERS: ATTEND Nurse Practitioner Family | DX: S81.801D Unspecified open wound, right lower leg, subsequent encounter (principal); R60.0 Localized edema ==

== ENCOUNTER 2021-12-23 15:21 | Outpatient (CLI) | payer MEDICARE | END 2021-12-23 15:22 | disposition home or self-care (01) | LOC: CSHWCC 15:21 | PROVIDERS: ATTEND Nurse Practitioner Family | DX: S81.801D Unspecified open wound, right lower leg, subsequent encounter (principal); R60.0 Localized edema | CPT/HCPCS: 29581 ==

== ENCOUNTER 2021-12-30 14:27 | Outpatient (CLI) | payer MEDICARE | END 2021-12-30 14:28 | disposition home or self-care (01) | LOC: CSHWCC 14:27 | PROVIDERS: ATTEND Nurse Practitioner Family | DX: S81.801D Unspecified open wound, right lower leg, subsequent encounter (principal); R60.0 Localized edema | CPT/HCPCS: 29581 ==

== ENCOUNTER 2022-01-08 08:35 | Outpatient (CLI) | payer MEDICARE | END 2022-01-08 08:36 | disposition home or self-care (01) | LOC: CSHWCC 08:35 | PROVIDERS: ATTEND Nurse Practitioner Family | DX: S81.801D Unspecified open wound, right lower leg, subsequent encounter (principal); R60.0 Localized edema ==

== ENCOUNTER 2022-01-17 11:40 | Outpatient (CLI) | payer MEDICARE | END 2022-01-17 11:41 | disposition home or self-care (01) | LOC: CSHWCC 11:40 | PROVIDERS: ATTEND Nurse Practitioner Family | DX: S81.801D Unspecified open wound, right lower leg, subsequent encounter (principal); R60.0 Localized edema | CPT/HCPCS: 97139; G0463; 99213 ==

== ENCOUNTER 2022-01-31 10:37 | Outpatient (CLI) | payer MEDICARE | END 2022-01-31 10:38 | disposition home or self-care (01) | LOC: CSHWCC 10:37 | PROVIDERS: ATTEND Nurse Practitioner Family | DX: R60.0 Localized edema (principal) | CPT/HCPCS: 97139; G0463; 99212 ==

== ENCOUNTER 2023-06-24 14:49 | Outpatient (CLI) | payer MEDICARE, OTHER | END 2023-06-24 14:50 | disposition home or self-care (01) | LOC: CSHWCC 14:49 | PROVIDERS: ATTEND Nurse Practitioner Family | DX: S81.811D Laceration without foreign body, right lower leg, subsequent encounter (principal) ==

== ENCOUNTER 2023-07-29 15:26 | Outpatient (CLI) | payer MEDICARE, OTHER | END 2023-07-29 15:27 | disposition home or self-care (01) | LOC: CSHWCC 15:26 | PROVIDERS: ATTEND Nurse Practitioner Family | DX: S81.811D Laceration without foreign body, right lower leg, subsequent encounter (principal) | CPT/HCPCS: 11042 ==

== ENCOUNTER 2023-08-12 14:54 | Outpatient (CLI) | payer MEDICARE, OTHER | END 2023-08-12 14:55 | disposition home or self-care (01) | LOC: CSHWCC 14:54 | PROVIDERS: ATTEND Nurse Practitioner Family | DX: S81.811D Laceration without foreign body, right lower leg, subsequent encounter (principal) | CPT/HCPCS: 97597 ==

== ENCOUNTER 2023-08-19 16:17 | Outpatient (CLI) | payer MEDICARE, OTHER | END 2023-08-19 16:18 | disposition home or self-care (01) | LOC: CSHWCC 16:17 | PROVIDERS: ATTEND Nurse Practitioner Family | DX: S81.811D Laceration without foreign body, right lower leg, subsequent encounter (principal) | CPT/HCPCS: 99212; G0463 ==